=== PATIENT | female | born 1980 | race Asian ===

== ENCOUNTER 2016-11-23 12:02 | Inpatient (IN) | payer BC ==
[2016-11-23] VITALS (21 sets, daily range): BP systolic 99–131; BP diastolic 62–97; PULSE 8–140; RESP 18; TEMP 98–98.9
[2016-11-23] MEDS ORDERED: LACTATED RINGER'S 1000 ML INJ 1,000 ML IV PRN (13:10)
[2016-11-23] MEDS ORDERED: LIDOCAINE HCL 1% 50 ML VIAL I-DERMAL PRN (13:15)
[2016-11-23] MEDS ORDERED: MINERAL OIL 10 ML VIAL TOPICAL PRN (13:15)
[2016-11-23] MEDS ORDERED: ONDANSETRON HCL 4 MG/2 ML VIAL IV PRN (13:15)
[2016-11-23] MEDS ORDERED: SODIUM CHLORID 0.9% 500 ML INJ 500 ML IV PRN (13:15)
[2016-11-23] MEDS ORDERED: CITRIC ACID-SODIUM CITRATE LIQ 30 ML UDC PO SCH (13:15)
[2016-11-23] MEDS ORDERED: OXYTOCIN 30 UNITS-500ML PREMIX 500 ML IV ONE (13:15)
[2016-11-23] MEDS ORDERED: LIDOCAINE HCL 1% 50 ML VIAL INFIL PRN (13:15)
--- NOTE | 2016-11-23 13:21 | PD ---
HPI Chief Complaint LOF Date Seen: Nov 23, 2016 Time Seen: 13:10 Travel History International Travel<30 Days: No Contact w/Intl Traveler<30Days: No Known Affected Area: No History of Present Illness HPI 36y/o , IUP at 38.1 PNC complicated by transfer of care from [facility] Patient presents c/o LOF since 11am; she denies any large gush of fluid, reports s small continuous leak of clear fluid. There were no aggravating factors and the leaking started spontaneously. She reports she has been having some ctx today that increased in intensity and frequency since the LOF started and reports they are about 5-10 minutes. She denies any VB. She reports good FM. She has no other OB complaints today. Para: 0 : 1 Miscarriage: 0 : 0 History Past Medical History Narrative Medical Denies Obstetric History Obstetric History Menarche at 15 Menses irregular, occur about 1x/year Denies abnl Paps or STD Past Surgical History Narrative Surgical Denies Family History Narrative Family History DM HTN Social History Alcohol Use: No Tobacco Use: No Substance Abuse: No Allergies-Medications (Allergen,Severity, Reaction): Coded Allergies: No Known Allergies (Unverified , 11/23/16) Review of Systems Except as stated in HPI: all other systems reviewed are Neg Physical Exam Vital Signs Date Time Temp Pulse Resp B/P Pulse Ox O2 Delivery O2 Flow Rate FiO2 11/23/16 12:55 98.0 95 18 106/77 Narrative GENERAL: Well-nourished, well-developed patient. SKIN: Warm and dry. HEAD: Normocephalic and atraumatic. EYES: No scleral icterus. No injection or drainage. ENT: No nasal drainage noted. Mucous membranes pink. Airway patent. NECK: Supple, trachea midline. No JVD. CARDIOVASCULAR: Regular rate and rhythm without murmurs, gallops, or rubs. RESPIRATORY: Breath sounds equal bilaterally. No accessory muscle use. BREASTS: Bilateral exam showed no masses , no retractions, no nipple discharge. 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 BACK: Nontender without obvious deformity. No CVA tenderness. NEUROLOGICAL: Awake and alert. Motor and sensory grossly within normal limits. Five out of 5 muscle strength in all muscle groups. Normal speech. MS: grossly normal ROM, gait, muscle strength PSYCH: grossly normal memory/affect Data Data Vital Signs Reviewed: Yes Orders Ob (2e) Additional Admit Info (11/23/16 13:07) Admit To Inpatient (11/23/16 ) Code Status (11/23/16 13:10) Vital Signs (Adult) .Per protocol (11/23/16 13:10) Heart (11/23/16 13:10) Amnioinfusion (11/23/16 13:10) Urinary Catheter Management .ONCE (11/23/16 13:10) Diet Npo (11/23/16 Lunch) Lactated Ringer's 1000 Ml Inj (Lr 1000 M (11/23/16 13:10) Lactated Ringer's 1000 Ml Inj (Lr 1000 M (11/23/16 13:10) Sodium Chlorid 0.9% 500 Ml Inj (Ns 500 M (11/23/16 13:15) Sodium Chlor 0.9% 1000 Ml Inj (Ns 1000 M (11/23/16 13:30) Lidocaine 1% Inj (50 Ml) (Xylocaine 1% I (11/23/16 13:15) Citric Acid-Sodium Citrate Liq (Bicitra (11/23/16 13:15) Ondansetron Inj (Zofran Inj) (11/23/16 13:15) Fentanyl Inj (Fentanyl Inj) (11/23/16 13:15) Fentanyl Inj (Fentanyl Inj) (11/23/16 13:15) Complete Blood Count With Diff (11/23/16 13:10) Hold Clot (11/23/16 13:10) Abo/Rh Blood Type (11/23/16 13:10) Urinalysis - C+S If Indicated (11/23/16 13:10) Resp Oxygen Non Rebreathe Mask (11/23/16 ) ^ Epidural / Intrathecal Infus (11/23/16 13:10) Oxytocin 30 Units-500ml Premix (Pitocin (11/23/16 13:15) Lidocaine 1% Inj (50 Ml) (Xylocaine 1% I (11/23/16 13:15) Light Mineral Oil (Muri-Lube Oil) (11/23/16 13:15) Inpatient Certification (11/23/16 ) MDM Plan A/P: 36y/o 1. IUP at 38.1 2. SROM: amnisure positive, SVE 7cm dilated indicative of active labor. Will admit to Dr. Escobar. Discussed risks of , risks/indications of C/S with patient. All questions answered, will admit, basic labor orders placed. 3. wellbeing: reassuring testing, FHR reassuring and appropriate for gestational age, continue EFM 4. GBS neg 5. Transfer of care from [facility]. 6. Care assumed by Dr. Shawn Silva,Nayana Davidson MD Nov 23, 2016 13:21
[2016-11-23] MEDS ORDERED: SODIUM CHLOR 0.9% 1000 ML INJ 1,000 ML IV PRN (13:30)
[2016-11-23 14:07] LABS: AUTOMATED NEUTROPHIL # 4.7 TH/MM3 (1.8-7.7); BASOPHIL % 0.3 % (0.0-2.0); EOSINOPHIL # 0.1 TH/MM3 (0-0.4); EOSINOPHIL % 1.3 % (0.0-4.0); HEMATOCRIT 38.4 % (35.0-46.0); HEMO FLAGS DIFF FINAL; LYMPH % 27.8 % (9.0-44.0); LYMPHOCYTE # 2.1 TH/MM3 (1.0-4.8); MEAN CELL VOLUME 87.3 FL (80.0-100.0); MEAN CORPUSCULAR HEMOGLOBIN 29.6 PG (27.0-34.0); NEUT % 62.6 % (16.0-70.0); PLATELET COUNT 279 TH/MM3 (150-450); RED BLOOD COUNT 4.39 MIL/MM3 (4.00-5.30); RED CELL DISTRIBUTION WIDTH 13.5 % (11.6-17.2); WHITE BLOOD COUNT 7.6 TH/MM3 (4.0-11.0)
[2016-11-23 14:24] LABS: BLOOD, URINE SMALL (NEG); COMMENT (UR) CATH-CULT NOT IND; CULTURE IF INDICATED CATH CULTURE NOT IND; GLUCOSE,URINE NEG (NEG); KETONE, URINE NEG (NEG); MUCUS URINE FEW /lpf (OCC); NITRITE,URINE NEG (NEG); PH, URINE 7.5 (5.0-8.5); SQUAMOUS EPITHELIAL CELL URINE <1 /hpf (0-5); URINE COLOR YELLOW (YELLW/STRAW)
[2016-11-23] MEDS ORDERED: fentaNYL 2MCG-BUPIV 0.125% INJ 100 ML ONE (14:39)
--- NOTE | 2016-11-23 15:36 | PD.OB.DELI ---
Anesthesia: None, Lidocaine local to perineum Episiotomy: None Vaginal Delivery: Normal Presentation: Occiput anterior Nuchal Cord: x2 Delayed cord clamping (45 sec): Yes One Minute : 8 Five Minute : 9 Placenta: Spontaneous delivery, Intact, 3 vessel cord Laceration: Vaginal laceration, 1 deg Repair: VicryRubens Farley MD Nov 23, 2016 15:35
[2016-11-23] MEDS ORDERED: ZOLPIDEM TARTRATE 5 MG TAB PO PRN (15:45)
[2016-11-23] MEDS ORDERED: WITCH HAZEL 50%/GLYCERIN 12.5% 40 PAD JAR TOPICAL PRN (15:45)
[2016-11-23] MEDS ORDERED: ALUMINUM/MAGNESIUM/SIMETH 30 ML CUP PO PRN (15:45)
[2016-11-23] MEDS ORDERED: ACETAMINOPHEN 325 MG TAB PO PRN (15:45)
[2016-11-23] MEDS ORDERED: OXYTOCIN 10 UNIT/ML AMP XX PRN (15:45)
[2016-11-23] MEDS ORDERED: DOCUSATE SODIUM 50 MG/SENNA 8.6 MG TAB PO PRN (15:45)
[2016-11-23] MEDS ORDERED: IBUPROFEN 600 MG TAB PO PRN (15:45)
[2016-11-23] MEDS ORDERED: SODIUM CHLORIDE 0.9% FLUSH 10 ML FLUSH IV FLUSH PRN (15:45)
[2016-11-23] MEDS ORDERED: ONDANSETRON ODT 4 MG TAB PO PRN (15:45)
[2016-11-23] MEDS ORDERED: BENZOCAINE 20% TOPICAL SPRAY 60 ML CAN TOPICAL PRN (15:45)
[2016-11-23] MEDS ORDERED: DIPHTH/TETANUS/ACEL PERTUSSIS (BOOSTER) 0.5 ML VIAL/PFS IM ONE (16:00)
[2016-11-23] MEDS ORDERED: MEASLES, MUMPS, RUBELLA VACCINE 0.5 ML VIAL SQ ONE (16:00)
[2016-11-23] MEDS ORDERED: SODIUM CHLORIDE 0.9% FLUSH 10 ML FLUSH IV FLUSH SCH (21:00)
[2016-11-23] MEDS: LACTATED RINGER'S 1000 ML INJ 1,000 ML IV SCH (21:06)
[2016-11-24] MEDS: LACTATED RINGER'S 1000 ML INJ 1,000 ML IV SCH (05:10)
[2016-11-24 08:43] VITALS: BP 112/60; PULSE 71; RESP 16; TEMP 97.9
--- NOTE | 2016-11-24 08:52 | HHI.OB ---
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 Objective Vitals/I&O Vital Signs Date Time Temp Pulse Resp B/P Pulse Ox O2 Delivery O2 Flow Rate FiO2 11/24/16 08:43 71 112/60 11/24/16 08:43 97.9 16 11/23/16 19:50 98.9 96 18 104/66 11/23/16 16:45 18 11/23/16 16:30 79 115/68 11/23/16 16:30 18 11/23/16 16:16 78 99/85 11/23/16 16:13 18 11/23/16 16:00 88 125/62 11/23/16 15:54 97 118/76 11/23/16 15:53 18 11/23/16 15:30 98.3 11/23/16 15:30 18 11/23/16 15:27 140 102/73 11/23/16 15:25 97 11/23/16 15:20 113 11/23/16 15:15 121 11/23/16 14:55 105 11/23/16 14:50 95 11/23/16 14:45 94 117/66 11/23/16 14:30 89 117/71 11/23/16 14:18 18 11/23/16 14:18 90 131/97 11/23/16 13:28 88 119/83 11/23/16 13:27 8 18 11/23/16 13:27 98.4 11/23/16 12:55 98.0 95 18 106/77 Objective Remarks GENERAL: Well-nourished, well-developed patient. CARDIOVASCULAR: Regular rate and rhythm without murmurs, gallops, or rubs. RESPIRATORY: Breath sounds equal bilaterally. No accessory muscle use. ABDOMEN/GI: Abdomen soft, non-tender. Fundus: Firm, non-tender at umbilicus. GENITOURINARY: Light to moderate bleeding. EXTREMITIES: No cyanosis or edema, non-tender, without signs of DVT. Medications and IVs Current Medications Medications (Trade) Dose Ordered Sig/Tuan Route Start Time Stop Time Status Last Admin Lactated Ringer's 1,000 ml @ 125 mls/hr Q8H IV 11/23/16 13:10 Lactated Ringer's 1,000 ml @ 3,000 mls/hr Q20M PRN IV 11/23/16 13:10 Sodium Chloride 500 ml @ 1,000 mls/hr ONCE PRN IV 11/23/16 13:15 (NS 1000 ml Inj) 1,000 ml @ 100 mls/hr Q10H PRN IV 11/23/16 13:30 (Muri-Lube Oil) 10 ml UNSCH PRN TOPICAL 11/23/16 13:15 (NS Flush) 2 ml BID IV FLUSH 11/23/16 21:00 (NS Flush) 2 ml UNSCH PRN IV FLUSH 11/23/16 15:45 (Tylenol) 650 mg Q4H PRN PO 11/23/16 15:45 (Motrin) 600 mg Q6H PRN PO 11/23/16 15:45 (Americaine 20% Top Spr) 1 spray Q4H PRN TOPICAL 11/23/16 15:45 (Tucks Pads) 1 applic QID PRN TOPICAL 11/23/16 15:45 (Dianna-Colace) 2 tab Q12H PRN PO 11/23/16 15:45 (Ambien) 5 mg HS PRN PO 11/23/16 15:45 (Mag-Al Plus Susp Liq) 15 ml Q8H PRN PO 11/23/16 15:45 (Zofran Odt) 4 mg Q6H PRN PO 11/23/16 15:45 Assessment/Plan Assessment and Plan nomral PPD 1 needs to have an appointment for peds and can then be discharged RTO 6 weeks Julia Meade MD Nov 24, 2016 08:51
--- NOTE | 2016-11-24 08:53 | HHI.DCPOC ---
Discharge Care Plan Report Symptoms to Your Doctor -Temperature above 100.5 degrees -Redness, of incision or excessive or foul smelling drainage -Unusual pain or calf pain -Increased vaginal bleeding -Painful or difficulty urinating -Feelings of extreme sadness or anxiety after 2 weeks Goals to Promote Your Health * To prevent worsening of your condition and complications * To maintain your health at the optimal level Directions to Meet Your Goals Take your medications as prescribed Follow your dietary instruction Follow activity as directed Ensure plenty of rest for recovery Drink fluids for hydration Keep your appointments as scheduled Take your immunizations and boosters as scheduled If your symptoms worsen call your PCP, if no PCP go to Urgent Care Center or Emergency Room Smoking is Dangerous to Your Health. Avoid second hand smoke Call the 24-hour crisis hotline for domestic abuse at Julia Meade MD Nov 24, 2016 08:53
[2016-11-24 19:50] VITALS: BP 105/73; PULSE 79; RESP 16; TEMP 98.6
--- NOTE | 2016-11-25 08:50 | HHI.OB ---
Subjective Post Day: 2 Remarks ready for discharge desires to move to [place] in next week to be with family no concerns with nursing Objective Vitals/I&O Vital Signs Date Time Temp Pulse Resp B/P Pulse Ox O2 Delivery O2 Flow Rate FiO2 11/24/16 19:50 98.6 11/24/16 19:50 79 16 105/73 Objective Remarks GENERAL: Well-nourished, well-developed patient. CARDIOVASCULAR: Regular rate and rhythm without murmurs, gallops, or rubs. RESPIRATORY: Breath sounds equal bilaterally. No accessory muscle use. ABDOMEN/GI: Abdomen soft, non-tender. Fundus: Firm, non-tender at umbilicus. GENITOURINARY: Light to moderate bleeding. EXTREMITIES: No cyanosis or edema, non-tender, without signs of DVT. Medications and IVs Current Medications Medications (Trade) Dose Ordered Sig/Tuan Route Start Time Stop Time Status Last Admin Lactated Ringer's 1,000 ml @ 125 mls/hr Q8H IV 11/23/16 13:10 Lactated Ringer's 1,000 ml @ 3,000 mls/hr Q20M PRN IV 11/23/16 13:10 Sodium Chloride 500 ml @ 1,000 mls/hr ONCE PRN IV 11/23/16 13:15 (NS 1000 ml Inj) 1,000 ml @ 100 mls/hr Q10H PRN IV 11/23/16 13:30 (Muri-Lube Oil) 10 ml UNSCH PRN TOPICAL 11/23/16 13:15 (NS Flush) 2 ml BID IV FLUSH 11/23/16 21:00 (NS Flush) 2 ml UNSCH PRN IV FLUSH 11/23/16 15:45 (Tylenol) 650 mg Q4H PRN PO 11/23/16 15:45 (Motrin) 600 mg Q6H PRN PO 11/23/16 15:45 (Americaine 20% Top Spr) 1 spray Q4H PRN TOPICAL 11/23/16 15:45 (Tucks Pads) 1 applic QID PRN TOPICAL 11/23/16 15:45 (Dianna-Colace) 2 tab Q12H PRN PO 11/23/16 15:45 (Ambien) 5 mg HS PRN PO 11/23/16 15:45 (Mag-Al Plus Susp Liq) 15 ml Q8H PRN PO 11/23/16 15:45 (Zofran Odt) 4 mg Q6H PRN PO 11/23/16 15:45 Assessment/Plan Assessment and Plan home today come to office just prior to leaving counseled on DVT risk with travel keep baby from strangers Julia Meade MD Nov 25, 2016 08:50
[2016-11-25 09:00] VITALS: BP 104/71; PULSE 70; RESP 16; TEMP 98.2
== END 2016-11-25 14:11 | disposition home or self-care (01) | DRG 775 ==
LOC: HOBED 12:02 → H2EA 13:17 → H1EA 17:26
PROVIDERS: ADMIT Obstetrics & Gynecology; ATTEND Obstetrics & Gynecology
PROC: 10E0XZZ Delivery of Products of Conception, External Approach (ICD-10-PCS; principal; 2016-11-23)
PROC: 0HQ9XZZ Repair Perineum Skin, External Approach (ICD-10-PCS; 2016-11-23)
DX: O69.81X0 Labor and delivery complicated by cord around neck, without compression, not applicable or unspecified (principal); O71.4 Obstetric high vaginal laceration alone; Z37.0 Single live birth; Z3A.38 38 weeks gestation of pregnancy
CPT/HCPCS: 81001; 84112; 85025; 86900; 86901